=== PATIENT | female | born 1975 | race Caucasian/White ===

== ENCOUNTER 2017-03-18 18:43 | Emergency (ER) | payer MEDICAID ==
[~2017-03-18] VITALS: Ht 157.5 cm; Wt 60.0 kg
[~2017-03-18 18:43] MED LIST: DIPH1TAB36
[2017-03-18 18:45] VITALS: BP 112/75; PULSE 62; RESP 16; TEMP 98.4; O2SAT 99
[2017-03-18] MEDS ORDERED: SODIUM CHLOR 0.9% 1000 ML INJ 1,000 ML IV SCH (19:37)
[2017-03-18] MEDS ORDERED: FAMOTIDINE 20 MG/2 ML VIAL IV PUSH ONE (19:45)
[2017-03-18] MEDS ORDERED: SODIUM CHLORIDE 0.9% FLUSH 10 ML FLUSH IV FLUSH PRN (19:45)
[2017-03-18] MEDS ORDERED: DICYCLOMINE HCL 10 MG CAP PO ONE (19:45)
[2017-03-18] MEDS ORDERED: ONDANSETRON HCL 4 MG/2 ML VIAL IVP ONE (19:45)
--- NOTE | 2017-03-18 19:45 | PD ---
HPI Chief Complaint: Abdominal Pain Time Seen by Provider: 19:21 Travel History International Travel<30 days: No Contact w/Intl Traveler<30days: No Traveled to known affect area: No History of Present Illness HPI Patient is a 41-year-old female with history of brain cancer as well as thyroid cancer, presents to emergency room complaints of abdominal pain. Patient reports that her abdominal pain began about 12 days ago, reports that she initially thought that her symptoms were initially due to constipation as she had not had a bowel movement in the past 8 days, reports that she took magnesium citrate and was able to have a small bowel movement a few days ago. Patient reports that she continues to have abdominal pain with nausea and vomiting. Patient reports that she went to another hospital a few days ago and was told that she had an ovarian cyst. Reports that she is unable to eat or drink anything as she vomits it up right after. Reports that she continues to have lower abdominal pain with nausea and vomiting. Denies any vaginal discharge or bleeding. Denies fever/chills. NO recent travels/trips. PFSH Past Medical History Anxiety: Yes Depression: Yes Cardiovascular Problems: No Diabetes: No Diminished Hearing: No Endocrine: Yes (pituritary tumor) Gastrointestinal Disorders: Yes (frequent constipation) Genitourinary: No Hepatitis: No Hiatal Hernia: No Immune Disorder: No Musculoskeletal: No Neurologic: Yes (migraines) Psychiatric: No Reproductive: Yes ( frequent vaginal bleeding) Respiratory: No Thyroid Disease: No Tetanus Vaccination: Unknown Influenza Vaccination: No ?: Not : 2 Para: 1 Miscarriage: 1 Past Surgical History Abdominal Surgery: No AICD: No Body Medical Devices: NONE PER PT Cardiac Surgery: No Ear Surgery: No Endocrine Surgery: No Eye Surgery: No Genitourinary Surgery: No Gynecologic Surgery: Yes (tubal LIGATION, ABLATION JULY 2015) Hysterectomy: Yes Joint Replacement: No Oral Surgery: No Pacemaker: No Thoracic Surgery: No Social History Alcohol Use: No Tobacco Use: Yes (1/2 PPD STARTED AGE 16) Substance Use: No Allergies-Medications (Allergen,Severity, Reaction): Coded Allergies: methylprednisolone (Unverified Allergy, Intermediate, LEG PAIN, 03/18/17) Reported Meds & Prescriptions Reported Meds & Active Scripts Active Zofran (Ondansetron HCl) 4 Mg Tab 4 Mg PO Q6HR PRN Azithromycin 500 Mg Tab 500 Mg PO DAILY Review of Systems General / Constitutional: No: Fever, Chills Eyes: No: Visual changes HENT: No: Headaches Cardiovascular: No: Chest Pain or Discomfort Respiratory: No: Cough, Shortness of Breath, Wheezing Gastrointestinal: Positive: Nausea, Vomiting, Abdominal Pain, Constipation Genitourinary: No: Dysuria Musculoskeletal: No: Pain Skin: No Rash Neurologic: No: Weakness Psychiatric: No: Depression Endocrine: No: Polydipsia Hematologic/Lymphatic: No: Easy Bruising Physical Exam Narrative GENERAL: moderate distress SKIN: Focused skin assessment warm/dry. HEAD: Atraumatic. Normocephalic. EYES: Pupils equal and round. No scleral icterus. No injection or drainage. ENT: No nasal bleeding or discharge. Mucous membranes pink and moist. NECK: Trachea midline. No JVD. CARDIOVASCULAR: Regular rate and rhythm. No murmur appreciated. RESPIRATORY: No accessory muscle use. Clear to auscultation. Breath sounds equal bilaterally. GASTROINTESTINAL: Abdomen soft, tender to right lower abdomen, no rebound or guarding on exam, nondistended. Hepatic and splenic margins not palpable. : pelvic exam performed with RN at bedside, no cmt or adnexal tenderness, thick white vaginal discharge MUSCULOSKELETAL: No obvious deformities. No clubbing. No cyanosis. No edema. NEUROLOGICAL: Awake and alert. No obvious cranial nerve deficits. Motor grossly within normal limits. Normal speech. PSYCHIATRIC: Appropriate mood and affect; insight and judgment normal. Data Data Last Documented VS Vital Signs Date Time Temp Pulse Resp B/P (MAP) Pulse Ox O2 Delivery O2 Flow Rate FiO2 03/18/17 18:45 98.4 62 16 112/75 (87) 99 Room Air Orders Orders Complete Blood Count With Diff (03/18/17 19:37) Comprehensive Metabolic Panel (03/18/17 19:37) Lipase (03/18/17 19:37) Prothrombin Time / Inr (Pt) (03/18/17 19:37) Act Partial Throm Time (Ptt) (03/18/17 19:37) Urinalysis - C+S If Indicated (03/18/17 19:37) Ct Abd/Pel W Iv Contrast(Rout) (03/18/17 19:37) Iv Access Insert/Monitor (03/18/17 19:37) Ecg Monitoring (03/18/17 19:37) Oximetry (03/18/17 19:37) Ondansetron Inj (Zofran Inj) (03/18/17 19:45) Sodium Chlor 0.9% 1000 Ml Inj (Ns 1000 M (03/18/17 19:37) Sodium Chloride 0.9% Flush (Ns Flush) (03/18/17 19:45) Famotidine Inj (Pepcid Inj) (03/18/17 19:45) Dicyclomine (Bentyl) (03/18/17 19:45) Ed Urine Pregnancytest Poc (03/18/17 19:37) Oral Contrast - Adult (03/18/17 19:42) Diatrizoate Liq ( Gastroview Liq) (03/18/17 19:54) Gc And Chlamydia Pcr (03/18/17 20:09) Wet Prep Profile (03/18/17 20:09) Us Pelvis Comp W Doppler (03/18/17 ) Chest, Pa & Lat (03/18/17 22:27) Ceftriaxone Inj (Rocephin Inj) (03/18/17 23:00) Azithromycin Inj (Zithromax Inj) (03/18/17 23:00) Blood Culture (03/18/17 23:03) Labs Laboratory Tests Test 03/18/17 20:00 03/18/17 20:40 White Blood Count 10.5 TH/MM3 Red Blood Count 3.82 MIL/MM3 Hemoglobin 12.4 GM/DL Hematocrit 35.9 % Mean Corpuscular Volume 93.9 FL Mean Corpuscular Hemoglobin 32.4 PG Mean Corpuscular Hemoglobin Concent 34.5 % Red Cell Distribution Width 14.0 % Platelet Count 239 TH/MM3 Mean Platelet Volume 8.0 FL Neutrophils (%) (Auto) 69.0 % Lymphocytes (%) (Auto) 18.7 % Monocytes (%) (Auto) 8.8 % Eosinophils (%) (Auto) 2.6 % Basophils (%) (Auto) 0.9 % Neutrophils # (Auto) 7.3 TH/MM3 Lymphocytes # (Auto) 2.0 TH/MM3 Monocytes # (Auto) 0.9 TH/MM3 Eosinophils # (Auto) 0.3 TH/MM3 Basophils # (Auto) 0.1 TH/MM3 CBC Comment DIFF FINAL Differential Comment Prothrombin Time 11.1 SEC Prothromb Time International Ratio 1.1 RATIO Activated Partial Thromboplast Time 24.2 SEC Urine Color YELLOW Urine Turbidity HAZY Urine pH 6.0 Urine Specific [place] 1.029 Urine Protein 30 mg/dL Urine Glucose (UA) NEG mg/dL Urine Ketones NEG mg/dL Urine Occult Blood NEG Urine Nitrite NEG Urine Bilirubin NEG Urine Urobilinogen 2.0 MG/DL Urine Leukocyte Esterase NEG Urine RBC 6 /hpf Urine WBC 3 /hpf Urine Squamous Epithelial Cells 22 /hpf Urine Calcium Oxalate Crystals OCC /hpf Urine Bacteria RARE /hpf Urine Mucus MANY /lpf Microscopic Urinalysis Comment CULT NOT INDICATED Blood Urea Nitrogen 23 MG/DL Creatinine 0.74 MG/DL Random Glucose 86 MG/DL Total Protein 7.0 GM/DL Albumin 4.0 GM/DL Calcium Level 8.4 MG/DL Alkaline Phosphatase 48 U/L Aspartate Amino Transf (AST/SGOT) 12 U/L Alanine Aminotransferase (ALT/SGPT) 20 U/L Total Bilirubin 0.3 MG/DL Sodium Level 143 MEQ/L Potassium Level 3.5 MEQ/L Chloride Level 108 MEQ/L Carbon Dioxide Level 30.7 MEQ/L Anion Gap 4 MEQ/L Estimat Glomerular Filtration Rate 86 ML/MIN Lipase 268 U/L Clue Cells (Wet Prep) NONE SEEN Vaginal Trichomonas (Wet Prep) NONE SEEN Vaginal Yeast (Wet Prep) NONE SEEN Chlamydia trachomatis DNA (PCR) NOT DETECTED Neisseria gonorrhoeae DNA (PCR) NOT DETECTED MDM Medical Decision Making Medical Screen Exam Complete: Yes Emergency Medical Condition: Yes Medical Record Reviewed: Yes Interpretation(s) Vital Signs Date Time Temp Pulse Resp B/P (MAP) Pulse Ox O2 Delivery O2 Flow Rate FiO2 03/18/17 18:45 98.4 62 16 112/75 (87) 99 Room Air Differential Diagnosis ovarian cyst, cervicitis, appendicitis, constipation Narrative Course 41 year old female who presents to ER with c/o of lower abdominal pain with nausea and vomiting which has been ongoing for the past 12 days. During the course of the patients emergency department visit, the patients history, examination, and differential diagnosis were reviewed with the patient. The patient was placed on a cardiac cath tech with oximetry and frequent blood pressure monitoring. The patient had an IV access obtained and blood work sent for analysis. The patient was initially provided IVF, IV zofran and IV pepcid The patients laboratory studies were reviewed and remarkable for: CBC & BMP Diagram 03/18/17 20:00 Total Protein 7.0, Albumin 4.0, Calcium Level 8.4 L, Alkaline Phosphatase 48, Aspartate Amino Transf (AST/SGOT) 12 L, Alanine Aminotransferase (ALT/SGPT) 20, Total Bilirubin 0.3 UA: 30 protein, 6rbc, occ calcium oxalate crystal, rare bacteria, many mucous clue cells neg trich neg yeast neg g/c neg Radiology studies were reviewed and remarkable for: Last Impressions Abdomen/Pelvis CT 03/18/17 1937 Signed Impressions: Service Date/Time: Saturday, March 18, 2017 21:36 - CONCLUSION: 1. Right middle lobe consolidation may represent pneumonia. 2. Bilateral ovarian cysts. Daniel Corrigan MD Pelvis Ultrasound 03/18/17 0000 Signed Impressions: Service Date/Time: Saturday, March 18, 2017 20:11 - CONCLUSION: Unremarkable study except for ovarian cysts. Daniel Corrigan MD All labs and studies reviewed, patient with RML infiltrate Vital Signs Date Time Temp Pulse Resp B/P (MAP) Pulse Ox O2 Delivery O2 Flow Rate FiO2 03/18/17 18:45 98.4 62 16 112/75 (87) 99 Room Air Vital signs are stable, white blood cell count is 10.5, hemoglobin 12.4, hematocrit 35.9, platelets 239 Patient was pancultured, plan to give 1 dose of IV Rocephin and azithromycin, and with a prescription for azithromycin. Patient understands need to follow- up with her primary care doctor for repeat chest xray. She will return to ER as needed Diagnosis Primary Impression: Pneumonia Qualified Codes: J18.1 - Lobar pneumonia, unspecified organism Additional Impression: Ovarian cyst Patient Instructions: General Instructions Additional Instructions: Please provide patient with a copy of their lab work and studies at discharge* * Please follow up with your primary care doctor in 2-3 days Return to the ER if symptoms worsen or progress Return to the ER as needed Please follow up with your blow mold operator Please bring your radiology report to your doctor's office for follow up on all studies from today Please follow up with open soaper tender Please follow up with all studies from today Med/Other Pt SpecificInfo: Prescription(s) given Scripts Ondansetron (Zofran) 4 Mg Tab 4 MG PO Q6HR Y for NAUSEA OR VOMITING, #20 TAB 0 Refills Prov: Arleth Bran DO 03/18/17 Azithromycin (Azithromycin) 500 Mg Tab 500 MG PO DAILY for Infection, #7 TAB 0 Refills Prov: Arleth Bran DO 03/18/17 Disposition: 01 DISCHARGE HOME Condition: Stable Arleth Bran DO Mar 18, 2017 19:45
[2017-03-18] MEDS ORDERED: DIATRIZOATE MEGLUM/DIATRIZOATE SOD 9 ML CUP ONE (19:54)
[2017-03-18 20:34] LABS: AUTOMATED NEUTROPHIL # 7.3 TH/MM3 (1.8-7.7); BASOPHIL # 0.1 TH/MM3 (0-0.2); BASOPHIL % 0.9 % (0.0-2.0); EOSINOPHIL # 0.3 TH/MM3 (0-0.4); EOSINOPHIL % 2.6 % (0.0-4.0); HEMATOCRIT 35.9 % (35.0-46.0); HEMOGLOBIN 12.4 GM/DL (11.6-15.3); LYMPH % 18.7 % (9.0-44.0); MEAN CELL VOLUME 93.9 FL (80.0-100.0); MEAN CORPUSCULAR HEMOGLOBIN 32.4 PG (27.0-34.0); MEAN CORPUSCULAR HGB CONC 34.5 % (32.0-36.0); MONO % 8.8 % (0.0-8.0); MONOCYTE # 0.9 TH/MM3 (0-0.9); PLATELET COUNT 239 TH/MM3 (150-450); RED BLOOD COUNT 3.82 MIL/MM3 (4.00-5.30); WHITE BLOOD COUNT 10.5 TH/MM3 (4.0-11.0)
[2017-03-18 20:48] LABS: BACTERIA, URINE RARE /hpf; BILIRUBIN, URINE NEG (NEG); BLOOD, URINE NEG (NEG); CALCIUM OXALATE CRYSTALS,URINE OCC /hpf; GLUCOSE,URINE NEG (NEG); KETONE, URINE NEG (NEG); MUCUS URINE MANY /lpf (OCC); NITRITE,URINE NEG (NEG); SQUAMOUS EPITHELIAL CELL URINE 22 /hpf (0-5); URINE COLOR YELLOW (YELLW/STRAW); URINE LEUKOCYTE ESTERASE NEG (NEG)
[2017-03-18 20:49] LABS: AST (GOT) 12 U/L (15-37); BICARBONATE 30.7 MEQ/L (21.0-32.0); BLOOD UREA NITROGEN 23 MG/DL (7-18); CALCIUM 8.4 MG/DL (8.5-10.1); CHLORIDE 108 MEQ/L (98-107); CREATININE 0.74 MG/DL (0.50-1.00); GLOMERULAR FILTRATION RATE 86 ML/MIN (>89); GLUCOSE,RANDOM 86 MG/DL (74-106); LIPASE 268 U/L (73-393); SODIUM (NA) 143 MEQ/L (136-145)
[2017-03-18 20:50] LABS: ALT (GPT) 20 U/L (10-53)
[2017-03-18 20:52] LABS: ALKALINE PHOSPHATASE 48 U/L (45-117); TOTAL BILIRUBIN ADULT 0.3 MG/DL (0.2-1.0)
[2017-03-18 20:55] LABS: INTERNATIONAL NORMALIZED RATIO 1.1 RATIO; PROTHROMBIN TIME - PATIENT 11.1 SEC (9.8-11.6)
--- NOTE | 2017-03-18 21:04 | RADRPT ---
EXAM DATE/TIME: 03/18/2017 20:11 [facility] COMPARISON: No previous studies available for comparison. INDICATIONS : Pelvic pain. MEDICAL HISTORY : Dentures. Migraines. Depression. Anxiety. Anemia. SURGICAL HISTORY : Hysterectomy. Tubal ligation. Ablation. ENCOUNTER: Initial ACUITY: 1 week PAIN SCORE: 7/10 LOCATION: Bilateral pelvis MEASUREMENTS: UTERUS: cm Surgically absent RIGHT OVARY: 4.6 x 4.2 x 3.6 cm LEFT OVARY: 4.3 x 3.4 x 3.1 cm FINDINGS: There is no free fluid, or adnexal mass. No definite uterine mass is identified for technique. There multiple simple cysts in the ovaries the largest on the right measures 1.8 cm on the left measures 2 .3 cm and there is flow to both ovaries. CONCLUSION: Unremarkable study except for ovarian cysts. Daniel Corrigan MD on March 18, 2017 at 21:01 Board Certified Radiologist. This report was verified electronically.
[2017-03-18] MEDS ORDERED: IOHEXOL 350 MG/ML 10 ML VIAL (for RAD DIAG) IVCONTRAST ONE (21:36)
--- NOTE | 2017-03-18 22:17 | RADRPT ---
EXAM DATE/TIME: 03/18/2017 21:36 [facility] COMPARISON: No previous studies available for comparison. INDICATIONS : Abdominal pain; history of constipation. IV CONTRAST: 97 cc Omnipaque 350 (iohexol) IV ORAL CONTRAST: No oral contrast ingested. RADIATION DOSE: 6.39 CTDIvol (mGy) MEDICAL HISTORY : Pituitary tumor SURGICAL HISTORY : Hysterectomy. ENCOUNTER: Initial ACUITY: 1 day PAIN SCALE: Non-responsive LOCATION: abdomen TECHNIQUE: Volumetric scanning of the abdomen and pelvis was performed. Using automated exposure control and ad justment of the mA and/or kV according to patient size, radiation dose was kept as low as reasonably achievable to obtain optimal diagnostic quality images. DICOM format image data is available electro nically for review and comparison. FINDINGS: CT Abdomen: The spleen, pancreas, kidneys, adrenals are unremarkable. There is a tiny subcentimeter c yst in the liver. There is no evidence for any appreciable pathological adenopathy, free fluid, or simona wel obstruction. There is focal consolidation right middle lobe may represent pneumonia. CT pelvis: There is no evidence for mass, abscess formation, or any significant adenopathy within the pelvis. There are simple cysts in both ovaries the largest measures 1.7 cm on the right and 3.0 cm o n the left. There is moderate amount of stool throughout the colon. CONCLUSION: 1. Right middle lobe consolidation may represent pneumonia. 2. Bilateral ovarian cysts. Daniel Corrigan MD on March 18, 2017 at 22:11 Board Certified Radiologist. This report was verified electronically.
--- NOTE | 2017-03-18 22:51 | RADRPT ---
EXAM DATE/TIME: 03/18/2017 22:37 [facility] COMPARISON: CT ABDOMEN & PELVIS W CONTRAST, March 18, 2017, 21:36. INDICATIONS : Abdominal pain and chest abnormality seen on Cat Scan. MEDICAL HISTORY : Pituitary tumor SURGICAL HISTORY : Hysterectomy. ENCOUNTER: Initial ACUITY: 1 day PAIN SCORE: 0/10 LOCATION: Bilateral chest FINDINGS: There is slight consolidation and/or atelectasis right middle lobe. Heart and mediastinum are unremar kable for technique. CONCLUSION: Slight right middle lobe consolidation and/or atelectasis. Daniel Corrigan MD on March 18, 2017 at 22:48 Board Certified Radiologist. This report was verified electronically.
[2017-03-18] MEDS ORDERED: AZITHROMYCIN INJ 500 MG in SODIUM CHLOR 0.9% 250 ML INJ 250 ML IV ONE (23:00)
[2017-03-18] MEDS ORDERED: AZIT500T2 PO (23:00)
[2017-03-18] MEDS ORDERED: cefTRIAXone INJ 1,000 MG in SODIUM CHLORIDE 0.9% INJ 100 ML IV ONE (23:00)
[2017-03-18] MEDS ORDERED: ZOFR4TAB PO (23:00)
== END 2017-03-19 01:26 | disposition home or self-care (01) ==
LOC: NEPD 18:43
DX: J18.9 Pneumonia, unspecified organism (principal); N83.292 Other ovarian cyst, left side; N83.291 Other ovarian cyst, right side; F32.9 Major depressive disorder, single episode, unspecified; F17.210 Nicotine dependence, cigarettes, uncomplicated; Z85.841 Personal history of malignant neoplasm of brain; Z85.850 Personal history of malignant neoplasm of thyroid; Z88.8 Allergy status to other drugs, medicaments and biological substances
CPT/HCPCS: 71020; 74177; 76856; 80053; 81001; 83690; 84703; 85025; 85610; 85730; 87040; 87210; 87491; 87591; 93975; 96361; 96365; 96366; 96368; 96375; 99285; J0456; J0696; J2405; J7030; J7050; Q9963; Q9967